=== PATIENT | female | born 1940 | race Caucasian/White ===

== ENCOUNTER 2019-12-04 18:46 | Observation (INO) | payer MEDICARE ==
[~2019-12-04] VITALS: Ht 162.6 cm; Wt 110.5 kg
[~2019-12-04 18:46] MED LIST: ALLO300 PO; ATOR20 PO; Aspirin EC81 MG; BUDE6HFA; Cortisporin Ear10 M1; DULO30 PO; LISI20 PO; MONT10T PO; Prednisone20 MG PO; TIOT18 INH; Voltaren100 GM TP; Xopenex Hfa15 GM
[2019-12-04 20:22] LABS: Source, Urine Clean Catch
[2019-12-04 20:30] LABS: BASOPHILS ABSOLUTE AUTO 0.07 K/mm3 (0.00-0.23); BASOPHILS PERCENT AUTO 1 % (0-2); EOSINOPHILS ABSOLUTE AUTO 0.19 K/mm3 (0.00-0.68); EOSINOPHILS PERCENT AUTO 2 % (0-6); Hematocrit 41.9 % (33.0-51.0); Hemoglobin 12.6 g/dL (11.5-16.0); IMMATURE GRAN ABSOLUTE AUTO 0.03 K/mm3 (0.00-0.10); IMMATURE GRAN PERCENT AUTO 0 % (0-1); LYMPHOCYTES ABSOLUTE AUTO 2.21 K/mm3 (0.84-5.20); LYMPHOCYTES PERCENT AUTO 25 % (21-46); MONOCYTES ABSOLUTE AUTO 0.63 K/mm3 (0.16-1.47); MONOCYTES PERCENT AUTO 7 % (4-13); Mean Corpuscular HGB 23.9 pg (26.0-34.0); Mean Corpuscular HGB Conc 30.1 g/dL (31.5-36.5); Mean Corpuscular Volume 80 fL (80-100); NEUTROPHILS ABSOLUTE AUTO 5.89 K/mm3 (1.96-9.15); NEUTROPHILS PERCENT AUTO 65 % (41-73); Platelet Count 338 K/mm3 (150-400); RDW Coefficient Variation 17.7 % (11.7-14.2); RDW Standard Deviation 50.4 fL (35.1-46.3); Red Blood Cell Count 5.27 M/mm3 (3.80-5.20); White Blood Cell Count 9.02 K/mm3 (4.00-11.30)
[2019-12-04 20:34] LABS: Appearance, Urine Clear (Clear); Bilirubin, Urine Neg (Neg); Blood, Urine 2+ (Neg); Color, Urine Yellow (P-Yellow); Glucose Qualitative, Urine Neg (Neg); Ketones, Urine Neg (Neg); Leukocyte Esterase, Urine Neg (Neg); Nitrite, Urine Neg (Neg); Protein, Urine Neg (Neg); Specific Gravity, Urine 1.015 (1.003-1.022); Urobilinogen, Urine NORM (Normal)
[2019-12-04 20:42] LABS: Amorphous Light (0-Heavy); Bacteria Many /hpf; Red Blood Cells, Urine 0-2 /hpf (0-2); Squamous Epithelial Cells Few /hpf (Few); White Blood Cells, Urine 0-2 /hpf (0-5)
[2019-12-04 20:54] LABS: Alanine Aminotransfer (ALT/SGP 17 U/L (12-78); Albumin, Blood 3.2 g/dL (3.4-5.0); Albumin/Globulin Ratio 0.7 (0.8-1.8); Alk Phos 117 U/L (50-136); Anion Gap 9 mmol/L (6-16); Aspartate Aminotrans (AST/SGOT 18 U/L (12-37); Bilirubin, Total 1.2 mg/dL (0.1-1.0); Blood Urea Nitrogen 24 mg/dL (8-24); CO2, Blood 26 mmol/L (21-32); Calcium, Blood 9.4 mg/dL (8.5-10.1); Chloride, Blood 105 mmol/L (98-108); Free Thyroxine 0.96 ng/dL (0.70-1.60); Globulin, Blood 4.3 g/dL (2.2-4.0); Glomerular Filtration Rate 46 (60-); Glucose, Blood 121 mg/dL (70-99); Potassium, Blood 3.6 mmol/L (3.5-5.5); Sodium, Blood 140 mmol/L (136-145); Total Protein, Blood 7.5 g/dL (6.4-8.2)
[2019-12-04] MEDS ORDERED: FUROSEMIDE20 MG PO (21:38)
[2019-12-04] MEDS ORDERED: LEVSOD75 PO (21:39)
[2019-12-04] MEDS ORDERED: CARVEDILOL12.5 MG PO (21:39)
[2019-12-04] MEDS ORDERED: ATOR40TA PO (21:40)
[2019-12-04] MEDS ORDERED: FLUT.05NI (21:41)
[2019-12-04] MEDS ORDERED: HYDROCHLOROTH12.5 MG PO (21:41)
[2019-12-04] MEDS ORDERED: PROAIR RESPICL90 MCG INH (21:42)
[2019-12-04] MEDS ORDERED: PANTOPRAZOLE SO40 M2 PO (21:42)
[2019-12-04] MEDS ORDERED: SPIRONOLACTONE100 MG PO (21:43)
[2019-12-04] MEDS ORDERED: CARAFATE1 GM PO (21:44)
[2019-12-04] MEDS ORDERED: CLOP75 PO (21:45)
[2019-12-04] MEDS ORDERED: OMEGA ACID PO (21:46)
[2019-12-04 22:00] LABS: Troponin I <0.015 ng/mL (0.000-0.040)
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
--- NOTE | 2019-12-05 03:21 | NUR ---
RT NOTIFIED ABOUT ORDER FOR CONTINUOUS PULSE OXIMETRY.
--- NOTE | 2019-12-05 04:04 | NUR ---
SHIFT SUMMARY PATIENT HAD NO CHANGES OBSERVED. AXOX 3 AND FORGETFUL AT TIMES. 1-2 ASSIST TO BSC W/FWW. ON 2L O2 NC AND RA BASELINE. SOB W/EXERTION. LEFT CALF EDEMA WITH WEEPING/REDNESS AND RIGHT CALF EDEMA/REDNESS. VSS/AFEBRILE. REPORTED LEGS WERE NOT PAINFUL. PIV REMAINS INTACT. SENIOR CYBER SECURITY ANALYST REPORTS NSR 63. PATIENT REPORTS SHE IS ANXIOUS WITH MANY LIFE EVENET AT THIS TIME AND HARD TO SLEEP. PATIENT DID NOT SLEEP IN HER CAR WELL. CALL LIGHT IN REACH. BED IN LOWEST POSITION AND ALARM ACTIVATED. WILL CONTINUE TO MONITOR UNTIL DAY SHIFT NURSE ASSUMES CARE.
[2019-12-05 05:35] LABS: BASOPHILS ABSOLUTE AUTO 0.07 K/mm3 (0.00-0.23); BASOPHILS PERCENT AUTO 1 % (0-2); EOSINOPHILS ABSOLUTE AUTO 0.27 K/mm3 (0.00-0.68); EOSINOPHILS PERCENT AUTO 3 % (0-6); Hemoglobin 11.1 g/dL (11.5-16.0); IMMATURE GRAN ABSOLUTE AUTO 0.03 K/mm3 (0.00-0.10); IMMATURE GRAN PERCENT AUTO 0 % (0-1); LYMPHOCYTES ABSOLUTE AUTO 1.91 K/mm3 (0.84-5.20); LYMPHOCYTES PERCENT AUTO 21 % (21-46); MONOCYTES ABSOLUTE AUTO 0.71 K/mm3 (0.16-1.47); MONOCYTES PERCENT AUTO 8 % (4-13); Mean Corpuscular HGB 23.9 pg (26.0-34.0); Mean Corpuscular Volume 80 fL (80-100); Mean Platelet Volume 9.6 fL (9.1-12.4); NEUTROPHILS ABSOLUTE AUTO 6.17 K/mm3 (1.96-9.15); NEUTROPHILS PERCENT AUTO 67 % (41-73); Platelet Count 282 K/mm3 (150-400); RDW Coefficient Variation 17.5 % (11.7-14.2); RDW Standard Deviation 49.9 fL (35.1-46.3); Red Blood Cell Count 4.64 M/mm3 (3.80-5.20); White Blood Cell Count 9.16 K/mm3 (4.00-11.30)
[2019-12-05 05:57] LABS: Bun/Creatinine Ratio 19.5 (12.0-20.0); Calcium, Blood 8.7 mg/dL (8.5-10.1); Creatinine, Blood 1.18 mg/dL (0.40-1.00)
--- NOTE | 2019-12-06 04:09 | NUR ---
SHIFT SUMMARY PATIENT HAD NO ACUTE CHANGES OBSERVED. AXO X3 WITH CONFUSION AT TIMES. ONE ASSIST TO BSC. ON 2L O2 NC AND RA BASELINE. PIV REPLACED AND IV ABX INFUSED. PATIENT COUGHING AT START OF SHIFT AND GUAIFENESIN AND TESSALON PER EMAR FOR COUGH SUPPRESSANT. PATIENT REPORTS SHE IS ANXIOUS ABOUT HOUSING AND ONLY SLEEPS A FEW HOURS/DAY. UP MOST OF THIS SHIFT. LEFT CALF EDEMA WITH BLISTER AND WEEPING. VSS/AFEBRILE. DENIES PAIN, SOB, AND N/V. CALL LIGHT IN REACH. BED IN LOWEST POSITION. WILL CONTINUE TO MONITOR UNTIL DAY SHIFT NURSE ASSUMES CARE.
[2019-12-06 05:56] LABS: Albumin, Blood 2.9 g/dL (3.4-5.0); Anion Gap 7 mmol/L (6-16); Blood Urea Nitrogen 21 mg/dL (8-24); Bun/Creatinine Ratio 16.9 (12.0-20.0); CO2, Blood 28 mmol/L (21-32); Chloride, Blood 99 mmol/L (98-108); Creatinine, Blood 1.24 mg/dL (0.40-1.00); Glomerular Filtration Rate 44 (60-); Glucose, Blood 114 mg/dL (70-99); Phosphorus, Blood 3.2 mg/dL (2.5-4.9); Potassium, Blood 3.6 mmol/L (3.5-5.5); Sodium, Blood 134 mmol/L (136-145)
--- NOTE | 2019-12-06 17:48 | NUR ---
PT AO AND COOPERATIVE OF CARE. PT DOING WELL AND IS ONE PERSON ASSIST TO BEDSIDE COMODE. PT WAS TREATED FOR BODY SORENESS PER EMAR AND CALLS APPROPRIATELY. PT SITTING UP AT EDGE OF BED EATING DINNER AT THIS TIME. COUGH CONTINUES TREATING PER EMAR. WILL CONTINUE TO MONITOR.
--- NOTE | 2019-12-07 04:03 | NUR ---
SHIFT SUMMARY PATIENT HAD NO ACUTE CHANGES OBSERVED. AXOX 3 AND ONE ASSIST TO BSC. REPORTED LEFT CALF PAIN X ONE AND TYLENOL GIVEN PER EMAR. LEFT CALF REDNESS IMPROVING IN COLOR. ON 2L O2 NC. PIV REMAINS INTACT. IV ABX INFUSED. REGISTERED MEDICAL TRANSCRIPTIONIST REPORTS NSR 62. VSS/AFEBRILE. DENIES SOB AND N/V. COUGH SUPRESSSANTS GUAIFENASIN AND TESSALON GIVEN PER EMAR. PATIENT LESS ANXIOUS THIS SHIFT. SHE RESTS ON/OFF T/O SHIFT REPORTING DOESN'T WATCH TV. CALL LIGHT IN REACH. BED IN LOWEST POSITION. WILL CONTINUE TO MONITOR UNTIL DAY SHIFT NURSE ASSUMES CARE.
[2019-12-07 04:48] LABS: Hematocrit 38.6 % (33.0-51.0); Hemoglobin 11.7 g/dL (11.5-16.0)
[2019-12-07 05:13] LABS: Albumin, Blood 2.9 g/dL (3.4-5.0); Anion Gap 6 mmol/L (6-16); Blood Urea Nitrogen 20 mg/dL (8-24); Bun/Creatinine Ratio 16.4 (12.0-20.0); CO2, Blood 29 mmol/L (21-32); Chloride, Blood 99 mmol/L (98-108); Creatinine, Blood 1.22 mg/dL (0.40-1.00); Glomerular Filtration Rate 45 (60-); Glucose, Blood 112 mg/dL (70-99); Phosphorus, Blood 2.9 mg/dL (2.5-4.9); Potassium, Blood 3.6 mmol/L (3.5-5.5); Sodium, Blood 134 mmol/L (136-145)
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
--- NOTE | 2019-12-07 18:31 | NUR ---
PT AOX4 AND COOPERATIVE OF CARE. PT HAS BEEN DOING WELL TODAY SITTING UP IN CHAIR AND GOING IN TO RESTROOM WITH 1 PERSON ASSIST AND WALKER. CELLULITIS IS MUCH BAR PILOT IN COLOR AND LOOKS TO BE IMPROVING. PT HAS BEEN EATING WELL AND CALLS APPROPRIATELY. PT HAS REQUESTED LUNG BIOPSY TO BE COMPLETED AND DR VALDERRAMA HAS BEEN NOTIFIED. CALL LIGHT IS WITHIN REACH AND WILL CONTINUE TO MONITOR.
--- NOTE | 2019-12-07 20:38 | NUR ---
ASSUMED CARE. LU IS AOX3. COOPERATIVE. LUNG SOUNDS CLEAR BUT DIMINISHED IN BASES. SATS GOOD ON 2 LITERS OF O2. SOB WITH EXERTION. COUGH IS OCCATIONAL AND PRODUCTIVE OF WHITE THIN SPUTUM. DISCUSSED USE OF INSPIROMETER OR FLUTTER VALVE SHE SAID SHE WILL NOT USE ONE. REDNESS UNDER PANUS AND LEFT BREAST. CLEANSED AND APPLIED BABY POWDER. CLOTH PLACED BETWEEN FOLDS. BRUISING NOTED ON LEGS. REDNESS TO LLE FROM CELLULITIS. AREA IS MARKED. HR RUNNING SINUS ON TELE. ADMINISTERED PM MEDS. DENIED ANY OTHER NEEDS. CALL LIGHT IN REACH.
[2019-12-08 06:01] LABS: Anion Gap 8 mmol/L (6-16); Blood Urea Nitrogen 18 mg/dL (8-24); CO2, Blood 29 mmol/L (21-32); Calcium, Blood 9.3 mg/dL (8.5-10.1); Chloride, Blood 102 mmol/L (98-108); Glomerular Filtration Rate 46 (60-); Glucose, Blood 97 mg/dL (70-99); Phosphorus, Blood 3.4 mg/dL (2.5-4.9); Potassium, Blood 3.4 mmol/L (3.5-5.5); Sodium, Blood 139 mmol/L (136-145)
--- NOTE | 2019-12-08 06:21 | NUR ---
SHIFT SUMMARY: AOX3, SAT UP FOR SHORT WHILE AT START OF SHIFT. SKIN NOTED TO HAVE REDNESS UNDER PANNUS AND LEFT BREAST. WILL NEED ORDER FOR NYSTATIN POWDER. LUNG SOUNDS CLEAR BUT DIMISHED. COUGH IS OCCATIONAL SMALL AMOUNTS OF WHITE CLEAR SPUTUM. SOB ONLY WITH EXERTION. TRANSFERS WITH 1 ASSIST. DID GIVE TYLENOL X1 FOR BODY ACHES LAST NIGHT. VS WNL, AFEBRILE. SLEPT WELL THROUGHOUT THE SHIFT. NO ACUTE CHANGES TO NOTE. CALL LIGHT IN REACH.
--- NOTE | 2019-12-08 18:24 | NUR ---
SHIFT SUMMARY PLANS FOR PT TO RECEIVE LUNG BIOPSY TOMORROW WELL POSSIBLE DISCHARGE TO SNF. PT AWARE AT THIS TIME OF PLANS. UP TO SHOWER THIS AFTERNOON AND REPORTED FEELING MUCH BETTER. HAS BEEN UP IN CHAIR MUCH OF THE DAY WITH NAP THIS AFTERNOON. 1 PERSON ASSIST USING A FWW TO BATHROOM. REDNESS NOTED TO STILL BE ON LEGS MOSTLY AROUND SCABS. WARM TO TOUCH. NO RESP DISTRESS NOTED TODAY.
--- NOTE | 2019-12-08 19:45 | NUR ---
ASSUMED CARE. LU REPORTS SHE IS DOING ALOT BETTER. LUNG SOUNDS ARE CLEAR BUT DIMINISHED IN BASES, SHE IS LESS SOB TODAY THEN YESTERDAY. SHE WAS EVEN ABLE TO WALK TO THE BATHROOM WITH NO SOB. NO PAIN NOTED. CELLULITIS TO THE LLE IS IMPROVING. HR SINUS. SCABS NOTED TO LLE, DRESSING PLACED OVER POSTERIOR DUE TO SCABS COMING OFF. GOOD APPETITE. DENIES ANY NEEDS AT THIS TIME. CALL LIGHT IN REACH.
--- NOTE | 2019-12-09 04:53 | NUR ---
SHIFT SUMMARY: VS WNL, AFEBRILE. SATS IN 90'S ON RA. DECREASE SOB WITH EXERTION. LUNG SOUNDS DIMINISHED. DECREASE IN COUGH. NO PAIN. SLEPT WELL TONIGHT ONCE SHE GOT TO SLEEP. REDNESS UNDER PANNUS AND BREAST STILL PRESENT. GOOD APPETITE, GOOD INTAKE AND OUTPUT. NO BM THIS SHIFT. IS ANXIOUS ABOUT HER BIOPSY TODAY AND HOPES SHE WILL GET IT DONE EARLY TO HAVE RESULTS BEFORE SHE MAY GO HOME. NO OTHER CHANGES TO NOTE THIS SHIFT. CALL LIGHT IN REACH.
[2019-12-09 05:19] LABS: International Normalized Ratio 1.03
--- NOTE | 2019-12-09 12:00 | NUR ---
PT RETURNED FROM LUNG BIOPSY AND WASN'T ABLE TO LAY FLAT ON BED FOR PROCEDURE. RETURNED TO ROOM VIA GURNEY. HAS BEEN USING FWW FOR AMBULATION AND TRANSFERS TODAY.
--- NOTE | 2019-12-09 15:30 | NUR ---
REPORT CALLED TO ANAND AT [facility]. PT TRANSFERRED THERE VIA W/C.
[2019-12-09] MEDS ORDERED: LACTOBACILLUS1 EAC4 PO (15:53)
--- NOTE | 2019-12-09 18:06 | NUR ---
Spiritual care note: Shannen appears more confused than the last time I saw her. She did not remember me and told me she didn't feel very good. She appeared to be working hard to breathe. Informed RN. She allowed me to sit beside her for awhile, holding her hand. Prayer provided. She was being discharged today.
== END 2019-12-09 15:10 ==
LOC: ER 18:46 → MEDS 18:48 → ENPENDDIS 12-09 14:13 → MEDS 12-09 15:10
PROVIDERS: Emergency Medicine; Family Medicine; Nurse Practitioner Acute Care; ADMIT Internal Medicine
DX: J96.01 Acute respiratory failure with hypoxia (principal); R91.8 Other nonspecific abnormal finding of lung field; N39.0 Urinary tract infection, site not specified; L03.116 Cellulitis of left lower limb; E87.6 Hypokalemia; E03.9 Hypothyroidism, unspecified; G31.84 Mild cognitive impairment of uncertain or unknown etiology; K21.9 Gastro-esophageal reflux disease without esophagitis; E87.1 Hypo-osmolality and hyponatremia; C16.9 Malignant neoplasm of stomach, unspecified; J81.1 Chronic pulmonary edema; D64.9 Anemia, unspecified; Z91.14 Patient's other noncompliance with medication regimen; N17.9 Acute kidney failure, unspecified; J44.9 Chronic obstructive pulmonary disease, unspecified; I11.0 Hypertensive heart disease with heart failure; I50.9 Heart failure, unspecified; Z87.891 Personal history of nicotine dependence; Z66 Do not resuscitate; Z79.899 Other long term (current) drug therapy; Z88.0 Allergy status to penicillin; Z88.1 Allergy status to other antibiotic agents; Z20.828 Contact with and (suspected) exposure to other viral communicable diseases
CPT/HCPCS: 36415; 70450; 71045; 71250; 74176; 80048; 80053; 80069; 81001; 83880; 84145; 84439; 84443; 84484; 85014; 85018; 85025; 85610; 85730; 87077; 87086; 87186; 93970; 94640; 94644; 94760; 94762; 96125-GN; 96365; 96366; 96367; 96372; 96375; 96376; 97110; 97116; 97162; 97165; 97535; 99285-25; A9270; A9270-GY; G0378; J0690; J1644; J1940; J1956; U0003

== ENCOUNTER → 2020-01-28 | Outpatient (CLI) | payer MEDICARE, OTHER ==
[~2020-01-28] MED LIST changes: +ATOR40TA PO; +CARAFATE1 GM PO; +CARVEDILOL12.5 MG PO; +CLOP75 PO; +FLUT.05NI; +FUROSEMIDE20 MG PO; +HYDROCHLOROTH12.5 MG PO; +LACTOBACILLUS1 EAC4 PO; +LEVSOD75 PO; +OMEGA ACID PO; +PANTOPRAZOLE SO40 M2 PO; +PROAIR RESPICL90 MCG INH; +SPIRONOLACTONE100 MG PO
[2020-01-28 11:42] LABS: Bun/Creatinine Ratio 10.2 (12.0-20.0); Calcium, Blood 9.5 mg/dL (8.5-10.1); Creatinine, Blood 1.37 mg/dL (0.40-1.00); Potassium, Blood 4.8 mmol/L (3.5-5.5)
== END | disposition home or self-care (01) ==
LOC: LAB UVN 11:10 → EDSTATUS 11:26
PROVIDERS: Nurse Practitioner Adult Health
DX: N17.8 Other acute kidney failure (principal)
CPT/HCPCS: 80048

== ENCOUNTER → 2020-02-02 | Outpatient (CLI) | payer MEDICARE, OTHER ==
[2020-02-02 03:33] LABS: Anion Gap 9 mmol/L (6-16); Blood Urea Nitrogen 12 mg/dL (8-24); Bun/Creatinine Ratio 13.3 (12.0-20.0); CO2, Blood 25 mmol/L (21-32); Calcium, Blood 9.4 mg/dL (8.5-10.1); Chloride, Blood 84 mmol/L (98-108); Glomerular Filtration Rate >60 (60-); Glucose, Blood 131 mg/dL (70-99); Potassium, Blood 4.8 mmol/L (3.5-5.5); Sodium, Blood 118 mmol/L (136-145)
== END | disposition home or self-care (01) ==
LOC: LAB UVN 03:04 → EDSTATUS 14:54
PROVIDERS: Nurse Practitioner Adult Health
DX: E87.1 Hypo-osmolality and hyponatremia (principal)
CPT/HCPCS: 80048

== ENCOUNTER → 2020-02-04 | Outpatient (CLI) | payer MEDICARE, OTHER ==
[2020-02-04 13:06] LABS: Anion Gap 9 mmol/L (6-16); Blood Urea Nitrogen 13 mg/dL (8-24); Bun/Creatinine Ratio 18.4 (12.0-20.0); CO2, Blood 23 mmol/L (21-32); Calcium, Blood 8.7 mg/dL (8.5-10.1); Chloride, Blood 92 mmol/L (98-108); Creatinine, Blood 0.71 mg/dL (0.40-1.00); Glomerular Filtration Rate >60 (60-); Glucose, Blood 114 mg/dL (70-99); Potassium, Blood 5.2 mmol/L (3.5-5.5); Sodium, Blood 124 mmol/L (136-145)
== END | disposition home or self-care (01) ==
LOC: LAB UVN 08:40 → EDSTATUS 14:55
PROVIDERS: Family Medicine
DX: E87.1 Hypo-osmolality and hyponatremia (principal)
CPT/HCPCS: 80048

== ENCOUNTER → 2020-02-08 | Outpatient (CLI) | payer MEDICARE, OTHER ==
[2020-02-08 06:27] LABS: Bun/Creatinine Ratio 15.8 (12.0-20.0); Calcium, Blood 8.8 mg/dL (8.5-10.1); Creatinine, Blood 1.01 mg/dL (0.40-1.00); Potassium, Blood 4.1 mmol/L (3.5-5.5)
== END | disposition home or self-care (01) ==
LOC: LAB UVN 05:51 → EDSTATUS 09:07
PROVIDERS: Nurse Practitioner Adult Health
DX: E87.1 Hypo-osmolality and hyponatremia (principal)
CPT/HCPCS: 80048

== ENCOUNTER → 2020-02-09 | Outpatient (CLI) | payer MEDICARE, OTHER ==
[2020-02-09 16:40] LABS: Hematocrit 39.3 % (33.0-51.0); Hemoglobin 12.3 g/dL (11.5-16.0); Mean Corpuscular HGB 24.9 pg (26.0-34.0); Mean Corpuscular HGB Conc 31.3 g/dL (31.5-36.5); Mean Corpuscular Volume 80 fL (80-100); Mean Platelet Volume 9.4 fL (9.1-12.4); Platelet Count 268 K/mm3 (150-400); RDW Coefficient Variation 18.6 % (11.7-14.2); Red Blood Cell Count 4.94 M/mm3 (3.80-5.20); White Blood Cell Count 11.52 K/mm3 (4.00-11.30)
[2020-02-09 17:38] LABS: Anion Gap 11 mmol/L (6-16); Blood Urea Nitrogen 18 mg/dL (8-24); Bun/Creatinine Ratio 19.8 (12.0-20.0); CO2, Blood 22 mmol/L (21-32); Calcium, Blood 9.3 mg/dL (8.5-10.1); Chloride, Blood 96 mmol/L (98-108); Creatinine, Blood 0.91 mg/dL (0.40-1.00); Glomerular Filtration Rate >60 (60-); Glucose, Blood 105 mg/dL (70-99); Potassium, Blood 4.4 mmol/L (3.5-5.5); Sodium, Blood 129 mmol/L (136-145)
[2020-02-09 20:48] LABS: Source, Urine Catheter
[2020-02-09 20:55] LABS: Appearance, Urine Clear (Clear); Bilirubin, Urine Neg (Neg); Blood, Urine Neg (Neg); Color, Urine Yellow (P-Yellow); Glucose Qualitative, Urine Neg (Neg); Ketones, Urine Neg (Neg); Leukocyte Esterase, Urine Neg (Neg); Nitrite, Urine Neg (Neg); Protein, Urine Neg (Neg); Urobilinogen, Urine NORM (Normal)
[2020-02-09 20:59] LABS: Osmolality, Serum 274 mos/KG (275-300)
[2020-02-09 21:04] LABS: Osmolality, Urine 444 mos/kg (15-1400)
[2020-02-09 21:21] LABS: Sodium, Urine, Random 63 mmol/L (20-110)
== END | disposition home or self-care (01) ==
LOC: EDSTATUS 09:09 → LAB UVN 15:06
PROVIDERS: Family Medicine
DX: E87.1 Hypo-osmolality and hyponatremia (principal)
CPT/HCPCS: 80048; 81003; 83930; 83935; 84300; 84443; 85027

== ENCOUNTER → 2020-02-15 | Outpatient (CLI) | payer MEDICARE, OTHER ==
[2020-02-15 04:34] LABS: Bun/Creatinine Ratio 16.4 (12.0-20.0); Creatinine, Blood 1.1 mg/dL (0.40-1.00); Potassium, Blood 3.9 mmol/L (3.5-5.5)
== END | disposition home or self-care (01) ==
LOC: LAB UVN 04:16 → EDSTATUS 15:09
PROVIDERS: Nurse Practitioner Adult Health
DX: E87.1 Hypo-osmolality and hyponatremia (principal)
CPT/HCPCS: 80048

== ENCOUNTER → 2020-02-22 | Outpatient (CLI) | payer MEDICARE, OTHER ==
[2020-02-22 14:32] LABS: Bun/Creatinine Ratio 14.6 (12.0-20.0); Calcium, Blood 8.9 mg/dL (8.5-10.1); Creatinine, Blood 0.96 mg/dL (0.40-1.00); Potassium, Blood 3.9 mmol/L (3.5-5.5)
== END | disposition home or self-care (01) ==
LOC: LAB UVN 09:58 → EDSTATUS 15:11
PROVIDERS: Nurse Practitioner Adult Health
DX: E87.1 Hypo-osmolality and hyponatremia (principal)
CPT/HCPCS: 80048

== ENCOUNTER → 2020-02-29 | Outpatient (CLI) | payer MEDICARE, OTHER ==
[2020-02-29 16:52] LABS: Bun/Creatinine Ratio 12.7 (12.0-20.0); Creatinine, Blood 1.02 mg/dL (0.40-1.00); Potassium, Blood 4.2 mmol/L (3.5-5.5)
== END | disposition home or self-care (01) ==
LOC: LAB UVN 14:30 → EDSTATUS 15:12
PROVIDERS: Nurse Practitioner Adult Health
DX: Z23 Encounter for immunization (principal); C17.9 Malignant neoplasm of small intestine, unspecified; I11.0 Hypertensive heart disease with heart failure; I50.9 Heart failure, unspecified; I25.10 Atherosclerotic heart disease of native coronary artery without angina pectoris; I21.4 Non-ST elevation (NSTEMI) myocardial infarction; N17.8 Other acute kidney failure; E87.1 Hypo-osmolality and hyponatremia; J44.9 Chronic obstructive pulmonary disease, unspecified; E66.01 Morbid (severe) obesity due to excess calories; J84.10 Pulmonary fibrosis, unspecified; L03.113 Cellulitis of right upper limb; D64.9 Anemia, unspecified; K21.9 Gastro-esophageal reflux disease without esophagitis; M54.5 Low back pain; M62.81 Muscle weakness (generalized); R26.2 Difficulty in walking, not elsewhere classified; R91.8 Other nonspecific abnormal finding of lung field; E03.9 Hypothyroidism, unspecified; F33.9 Major depressive disorder, recurrent, unspecified; G47.33 Obstructive sleep apnea (adult) (pediatric); J45.998 Other asthma; M10.9 Gout, unspecified; J96.01 Acute respiratory failure with hypoxia; L03.116 Cellulitis of left lower limb; N39.0 Urinary tract infection, site not specified; Z74.1 Need for assistance with personal care
CPT/HCPCS: 80048

== ENCOUNTER → 2020-03-02 | Outpatient (CLI) | payer MEDICARE, OTHER ==
[2020-03-02 21:44] LABS: Source, Urine Catheter
[2020-03-02 21:49] LABS: BASOPHILS ABSOLUTE AUTO 0.06 K/mm3 (0.00-0.23); BASOPHILS PERCENT AUTO 0 % (0-2); EOSINOPHILS ABSOLUTE AUTO 0.13 K/mm3 (0.00-0.68); EOSINOPHILS PERCENT AUTO 1 % (0-6); Hematocrit 45.5 % (33.0-51.0); Hemoglobin 13.9 g/dL (11.5-16.0); IMMATURE GRAN ABSOLUTE AUTO 0.08 K/mm3 (0.00-0.10); IMMATURE GRAN PERCENT AUTO 1 % (0-1); LYMPHOCYTES ABSOLUTE AUTO 2.18 K/mm3 (0.84-5.20); LYMPHOCYTES PERCENT AUTO 15 % (21-46); MONOCYTES ABSOLUTE AUTO 0.82 K/mm3 (0.16-1.47); MONOCYTES PERCENT AUTO 6 % (4-13); Mean Corpuscular HGB 24.3 pg (26.0-34.0); Mean Corpuscular HGB Conc 30.5 g/dL (31.5-36.5); Mean Corpuscular Volume 80 fL (80-100); Mean Platelet Volume 9.7 fL (9.1-12.4); NEUTROPHILS PERCENT AUTO 77 % (41-73); Platelet Count 419 K/mm3 (150-400); RDW Coefficient Variation 17.8 % (11.7-14.2); RDW Standard Deviation 51.4 fL (35.1-46.3); Red Blood Cell Count 5.72 M/mm3 (3.80-5.20); White Blood Cell Count 14.47 K/mm3 (4.00-11.30)
[2020-03-02 21:50] LABS: Bilirubin, Urine Neg (Neg); Blood, Urine 4+ (Neg); Glucose Qualitative, Urine Neg (Neg); Ketones, Urine Neg (Neg); Leukocyte Esterase, Urine 3+ (Neg); Nitrite, Urine Neg (Neg); Protein, Urine 2+ (Neg); Specific Gravity, Urine 1.025 (1.003-1.022); Urobilinogen, Urine NORM (Normal)
[2020-03-02 22:00] LABS: Appearance, Urine Cloudy (Clear); Bacteria Mod /hpf; Calcium Oxalate Crystals Few /hpf; Color, Urine Yellow (P-Yellow); Red Blood Cells, Urine 0-2 /hpf (0-2); Squamous Epithelial Cells Mod /hpf (Few); White Blood Cells, Urine TNTC /hpf (0-5)
[2020-03-02 22:05] LABS: Bun/Creatinine Ratio 12.8 (12.0-20.0); Creatinine, Blood 1.17 mg/dL (0.40-1.00); Potassium, Blood 4.7 mmol/L (3.5-5.5)
== END | disposition home or self-care (01) ==
LOC: EDSTATUS 15:07 → LAB UVN 21:38
PROVIDERS: Family Medicine
DX: Z23 Encounter for immunization (principal); C17.9 Malignant neoplasm of small intestine, unspecified; I11.0 Hypertensive heart disease with heart failure; I50.9 Heart failure, unspecified; J96.01 Acute respiratory failure with hypoxia; L03.116 Cellulitis of left lower limb; N39.0 Urinary tract infection, site not specified; N17.8 Other acute kidney failure; J44.9 Chronic obstructive pulmonary disease, unspecified; E66.01 Morbid (severe) obesity due to excess calories; J84.10 Pulmonary fibrosis, unspecified; R60.9 Edema, unspecified; L03.113 Cellulitis of right upper limb; D64.9 Anemia, unspecified; E87.1 Hypo-osmolality and hyponatremia; I25.10 Atherosclerotic heart disease of native coronary artery without angina pectoris; K21.9 Gastro-esophageal reflux disease without esophagitis; M54.5 Low back pain; M62.81 Muscle weakness (generalized); R26.2 Difficulty in walking, not elsewhere classified; R91.8 Other nonspecific abnormal finding of lung field; I21.4 Non-ST elevation (NSTEMI) myocardial infarction; E03.9 Hypothyroidism, unspecified; F33.9 Major depressive disorder, recurrent, unspecified; G47.33 Obstructive sleep apnea (adult) (pediatric); J45.998 Other asthma; M10.9 Gout, unspecified; Z74.1 Need for assistance with personal care
CPT/HCPCS: 80048; 81001; 85025; 87077; 87086; 87186

== ENCOUNTER → 2020-03-06 | Outpatient (CLI) | payer MEDICARE, OTHER ==
[2020-03-06 23:43] LABS: BASOPHILS ABSOLUTE AUTO 0.05 K/mm3 (0.00-0.23); BASOPHILS PERCENT AUTO 1 % (0-2); EOSINOPHILS ABSOLUTE AUTO 0.43 K/mm3 (0.00-0.68); EOSINOPHILS PERCENT AUTO 4 % (0-6); Hematocrit 38.3 % (33.0-51.0); IMMATURE GRAN ABSOLUTE AUTO 0.06 K/mm3 (0.00-0.10); IMMATURE GRAN PERCENT AUTO 1 % (0-1); LYMPHOCYTES ABSOLUTE AUTO 1.92 K/mm3 (0.84-5.20); LYMPHOCYTES PERCENT AUTO 17 % (21-46); MONOCYTES ABSOLUTE AUTO 0.96 K/mm3 (0.16-1.47); MONOCYTES PERCENT AUTO 9 % (4-13); Mean Corpuscular HGB 24.4 pg (26.0-34.0); Mean Corpuscular HGB Conc 31.3 g/dL (31.5-36.5); Mean Corpuscular Volume 78 fL (80-100); Mean Platelet Volume 9.7 fL (9.1-12.4); NEUTROPHILS ABSOLUTE AUTO 7.66 K/mm3 (1.96-9.15); NEUTROPHILS PERCENT AUTO 69 % (41-73); Platelet Count 329 K/mm3 (150-400); RDW Coefficient Variation 17.2 % (11.7-14.2); RDW Standard Deviation 48.9 fL (35.1-46.3); Red Blood Cell Count 4.91 M/mm3 (3.80-5.20); White Blood Cell Count 11.08 K/mm3 (4.00-11.30)
[2020-03-07 00:04] LABS: Bun/Creatinine Ratio 17.1 (12.0-20.0); Calcium, Blood 8.2 mg/dL (8.5-10.1); Creatinine, Blood 1.11 mg/dL (0.40-1.00); Potassium, Blood 4.1 mmol/L (3.5-5.5); Thyroid Stimulating Hormone 4.72 uIU/mL (0.360-4.800)
== END | disposition home or self-care (01) ==
LOC: EDSTATUS 11:46 → LAB UVN 23:00
PROVIDERS: Family Medicine
DX: N17.8 Other acute kidney failure (principal)
CPT/HCPCS: 80048; 84443; 85025

== ENCOUNTER → 2020-03-10 | Outpatient (CLI) | payer MEDICARE, OTHER ==
[2020-03-10 11:13] LABS: Anion Gap 9 mmol/L (6-16); Blood Urea Nitrogen 14 mg/dL (8-24); Bun/Creatinine Ratio 15.8 (12.0-20.0); CO2, Blood 24 mmol/L (21-32); Calcium, Blood 8.6 mg/dL (8.5-10.1); Chloride, Blood 102 mmol/L (98-108); Creatinine, Blood 0.89 mg/dL (0.40-1.00); Glomerular Filtration Rate >60 (60-); Glucose, Blood 160 mg/dL (70-99); Potassium, Blood 4.3 mmol/L (3.5-5.5); Sodium, Blood 135 mmol/L (136-145)
[2020-03-10 11:24] LABS: Vancomycin, Trough 25.6 ug/mL (5.0-10.0)
== END | disposition home or self-care (01) ==
LOC: LAB UVN 10:13
PROVIDERS: Family Medicine
DX: N39.0 Urinary tract infection, site not specified (principal); I10 Essential (primary) hypertension
CPT/HCPCS: 80048; 80202

== ENCOUNTER → 2020-03-12 | Outpatient (CLI) | payer MEDICARE, OTHER ==
[2020-03-12 22:55] LABS: Anion Gap 10 mmol/L (6-16); Blood Urea Nitrogen 16 mg/dL (8-24); Bun/Creatinine Ratio 16.4 (12.0-20.0); CO2, Blood 23 mmol/L (21-32); Calcium, Blood 8.4 mg/dL (8.5-10.1); Chloride, Blood 101 mmol/L (98-108); Creatinine, Blood 0.98 mg/dL (0.40-1.00); Glomerular Filtration Rate 59 (60-); Glucose, Blood 127 mg/dL (70-99); Potassium, Blood 4.8 mmol/L (3.5-5.5); Sodium, Blood 134 mmol/L (136-145)
[2020-03-12 23:09] LABS: Vancomycin, Trough 21.1 ug/mL (5.0-10.0)
== END | disposition home or self-care (01) ==
LOC: LAB UVN 22:23
PROVIDERS: Family Medicine
DX: N17.8 Other acute kidney failure (principal); N39.0 Urinary tract infection, site not specified
CPT/HCPCS: 80048; 80202

== ENCOUNTER → 2020-03-13 | Outpatient (CLI) | payer MEDICARE, OTHER | END | disposition home or self-care (01) | LOC: LAB UVN 20:35 | PROVIDERS: Nurse Practitioner Adult Health | DX: N39.0 Urinary tract infection, site not specified (principal) | CPT/HCPCS: 80202 ==

== ENCOUNTER → 2020-04-07 | Outpatient (CLI) | payer OTHER ==
[2020-04-07 07:26] LABS: BASOPHILS ABSOLUTE AUTO 0.06 K/mm3 (0.00-0.23); BASOPHILS PERCENT AUTO 1 % (0-2); EOSINOPHILS ABSOLUTE AUTO 0.28 K/mm3 (0.00-0.68); EOSINOPHILS PERCENT AUTO 3 % (0-6); Hematocrit 43.5 % (33.0-51.0); Hemoglobin 13.2 g/dL (11.5-16.0); IMMATURE GRAN ABSOLUTE AUTO 0.04 K/mm3 (0.00-0.10); IMMATURE GRAN PERCENT AUTO 1 % (0-1); LYMPHOCYTES ABSOLUTE AUTO 1.65 K/mm3 (0.84-5.20); LYMPHOCYTES PERCENT AUTO 19 % (21-46); MONOCYTES ABSOLUTE AUTO 0.76 K/mm3 (0.16-1.47); MONOCYTES PERCENT AUTO 9 % (4-13); Mean Corpuscular HGB 24.4 pg (26.0-34.0); Mean Corpuscular HGB Conc 30.3 g/dL (31.5-36.5); Mean Corpuscular Volume 80 fL (80-100); Mean Platelet Volume 10.3 fL (9.1-12.4); NEUTROPHILS PERCENT AUTO 68 % (41-73); Platelet Count 256 K/mm3 (150-400); RDW Coefficient Variation 17.5 % (11.7-14.2); Red Blood Cell Count 5.42 M/mm3 (3.80-5.20); White Blood Cell Count 8.69 K/mm3 (4.00-11.30)
[2020-04-07 07:45] LABS: Bun/Creatinine Ratio 16.2 (12.0-20.0); Calcium, Blood 8.9 mg/dL (8.5-10.1); Creatinine, Blood 1.17 mg/dL (0.40-1.00); Thyroid Stimulating Hormone 2.77 uIU/mL (0.360-4.800)
== END | disposition home or self-care (01) ==
LOC: LAB UVN 06:34 → EDSTATUS 12:37
PROVIDERS: Family Medicine
DX: J44.9 Chronic obstructive pulmonary disease, unspecified (principal); E03.9 Hypothyroidism, unspecified; R60.9 Edema, unspecified
CPT/HCPCS: 80048; 84443; 85025

== ENCOUNTER → 2020-04-29 | Outpatient (CLI) | payer OTHER ==
[2020-04-29 17:48] LABS: Hemoglobin 18.4 g/dL (11.5-16.0); Mean Corpuscular HGB 25.1 pg (26.0-34.0); Mean Corpuscular HGB Conc 31.3 g/dL (31.5-36.5); Mean Corpuscular Volume 80 fL (80-100); Platelet Count 224 K/mm3 (150-400); RDW Coefficient Variation 20.5 % (11.7-14.2); RDW Standard Deviation 55.2 fL (35.1-46.3); Red Blood Cell Count 7.32 M/mm3 (3.80-5.20); White Blood Cell Count 18.31 K/mm3 (4.00-11.30)
[2020-04-29 17:55] LABS: Appearance, Urine Turbid (Clear); Blood, Urine 4+ (Neg); Color, Urine Yellow (P-Yellow); Glucose Qualitative, Urine Neg (Neg); Ketones, Urine Neg (Neg); Leukocyte Esterase, Urine 3+ (Neg); Nitrite, Urine Neg (Neg); Protein, Urine 3+ (Neg); Specific Gravity, Urine 1.025 (1.003-1.022); Urobilinogen, Urine NORM (Normal)
[2020-04-29 18:02] LABS: Hematocrit 58.7 % (33.0-51.0)
[2020-04-29 18:22] LABS: Bilirubin, Urine 1+ (Neg)
[2020-04-29 18:24] LABS: Bacteria Many /hpf; Squamous Epithelial Cells Not Seen /hpf (Few); White Blood Cells, Urine TNTC /hpf (0-5)
[2020-04-29 19:03] LABS: Bun/Creatinine Ratio 33.6 (12.0-20.0); Calcium, Blood 9.7 mg/dL (8.5-10.1); Creatinine, Blood 4.43 mg/dL (0.40-1.00); Potassium, Blood 5.8 mmol/L (3.5-5.5)
== END ==
LOC: EDSTATUS 13:36 → LAB UVN 14:12
PROVIDERS: Nurse Practitioner Adult Health
DX: N39.0 Urinary tract infection, site not specified (principal); Z88.0 Allergy status to penicillin; Z88.1 Allergy status to other antibiotic agents
CPT/HCPCS: 80048; 81001; 85027; 87077; 87086; 87186

== ENCOUNTER → 2020-05-02 | Outpatient (CLI) | payer MEDICARE, OTHER ==
[2020-05-02 06:30] LABS: BASOPHILS ABSOLUTE AUTO 0.03 K/mm3 (0.00-0.23); BASOPHILS PERCENT AUTO 0 % (0-2); EOSINOPHILS PERCENT AUTO 0 % (0-6); Hematocrit 50.3 % (33.0-51.0); Hemoglobin 15.4 g/dL (11.5-16.0); IMMATURE GRAN ABSOLUTE AUTO 0.32 K/mm3 (0.00-0.10); IMMATURE GRAN PERCENT AUTO 2 % (0-1); LYMPHOCYTES ABSOLUTE AUTO 2.16 K/mm3 (0.84-5.20); LYMPHOCYTES PERCENT AUTO 11 % (21-46); MONOCYTES ABSOLUTE AUTO 1.17 K/mm3 (0.16-1.47); MONOCYTES PERCENT AUTO 6 % (4-13); Mean Corpuscular HGB 25.3 pg (26.0-34.0); Mean Corpuscular HGB Conc 30.6 g/dL (31.5-36.5); Mean Corpuscular Volume 83 fL (80-100); NEUTROPHILS PERCENT AUTO 82 % (41-73); Platelet Count 120 K/mm3 (150-400); RDW Coefficient Variation 20.4 % (11.7-14.2); RDW Standard Deviation 58.4 fL (35.1-46.3); Red Blood Cell Count 6.09 M/mm3 (3.80-5.20); White Blood Cell Count 19.98 K/mm3 (4.00-11.30)
[2020-05-02 07:10] LABS: Bun/Creatinine Ratio 29.2 (12.0-20.0); Calcium, Blood 8.4 mg/dL (8.5-10.1); Creatinine, Blood 6.26 mg/dL (0.40-1.00); Potassium, Blood 6.2 mmol/L (3.5-5.5)
== END | disposition home or self-care (01) ==
LOC: LAB UVN 06:19 → EDSTATUS 11:23
PROVIDERS: Family Medicine
DX: J44.9 Chronic obstructive pulmonary disease, unspecified (principal); I50.9 Heart failure, unspecified; E87.1 Hypo-osmolality and hyponatremia
CPT/HCPCS: 80048; 85025